=== PATIENT | female | born 1960 | race Caucasian/White ===

== ENCOUNTER 2017-07-29 11:22 | Emergency (ER) | payer OTHER ==
[~2017-07-29] VITALS: Ht 160 cm; Wt 55.3 kg
[~2017-07-29 11:22] MED LIST: HYDACE5 PO; IBUP200 PO; RANI150 PO; RISP3 PO; SERT100 PO
[2017-07-29] MEDS ORDERED: ALBU90OI61 INH (11:45)
[2017-07-29] MEDS ORDERED: Crutch1 EACH UD (13:10)
[2017-07-29] MEDS ORDERED: Norco 5-325 Ta1 EACH PO (13:10)
== END 2017-07-29 13:35 | disposition home or self-care (01) ==
LOC: ER 11:22
DX: M25.561 Pain in right knee (principal); F31.9 Bipolar disorder, unspecified; F17.200 Nicotine dependence, unspecified, uncomplicated; Z98.890 Other specified postprocedural states
CPT/HCPCS: 29505; 73564; 99283

== ENCOUNTER → 2018-07-28 | Outpatient (CLI) | payer OTHER ==
[~2018-07-28] MED LIST changes: +ALBU90OI61 INH; +Crutch1 EACH UD; +Norco 5-325 Ta1 EACH PO
[2018-08-01 14:08] LABS: HPV 16 Negative (Negative); HPV 18 Negative (Negative); HPV OTHER HR TYPES Negative (Negative)
== END | disposition home or self-care (01) ==
LOC: LAB 14:10 → LAB SHORT 14:10
PROVIDERS: Family Medicine
DX: Z00.00 Encounter for general adult medical examination without abnormal findings (principal)
CPT/HCPCS: 87624; G0145

== ENCOUNTER → 2018-12-08 | Outpatient (CLI) | payer OTHER | END | disposition home or self-care (01) | LOC: LAB 18:08 → LAB SHORT 18:08 | DX: N39.0 Urinary tract infection, site not specified (principal) | CPT/HCPCS: 87086 ==

== ENCOUNTER 2020-01-15 20:05 | Inpatient (IN) | payer OTHER ==
[~2020-01-15] VITALS: Ht 160 cm; Wt 51.6 kg
[~2020-01-15 20:05] MED LIST changes: -SERT100 PO; +ZOLOFT25 MG PO
[2020-01-15 20:39] LABS: BASOPHILS ABSOLUTE AUTO 0.01 K/mm3 (0.00-0.23); BASOPHILS PERCENT AUTO 0 % (0-2); EOSINOPHILS ABSOLUTE AUTO 0.03 K/mm3 (0.00-0.68); EOSINOPHILS PERCENT AUTO 0 % (0-6); Hematocrit 38.9 % (33.0-51.0); Hemoglobin 14.5 g/dL (11.5-16.0); IMMATURE GRAN ABSOLUTE AUTO 0.04 K/mm3 (0.00-0.10); IMMATURE GRAN PERCENT AUTO 1 % (0-1); LYMPHOCYTES ABSOLUTE AUTO 1.27 K/mm3 (0.84-5.20); LYMPHOCYTES PERCENT AUTO 16 % (21-46); MONOCYTES ABSOLUTE AUTO 0.93 K/mm3 (0.16-1.47); MONOCYTES PERCENT AUTO 12 % (4-13); Mean Corpuscular HGB 31.8 pg (26.0-34.0); Mean Corpuscular HGB Conc 37.3 g/dL (31.5-36.5); Mean Corpuscular Volume 85 fL (80-100); Mean Platelet Volume 10.1 fL (9.1-12.4); NEUTROPHILS ABSOLUTE AUTO 5.58 K/mm3 (1.96-9.15); NEUTROPHILS PERCENT AUTO 71 % (41-73); Platelet Count 157 K/mm3 (150-400); RDW Standard Deviation 34.2 fL (35.1-46.3); Red Blood Cell Count 4.56 M/mm3 (3.80-5.20); White Blood Cell Count 7.86 K/mm3 (4.00-11.30)
[2020-01-15 20:53] LABS: International Normalized Ratio 1.06; Prothrombin Time Results 11.3 Sec (9.7-11.5)
[2020-01-15 21:16] LABS: Alanine Aminotransfer (ALT/SGP 655 U/L (12-78); Albumin, Blood 3.6 g/dL (3.4-5.0); Alk Phos 102 U/L (50-136); Anion Gap 9 mmol/L (6-16); Aspartate Aminotrans (AST/SGOT 665 U/L (12-37); Bilirubin, Total 1.7 mg/dL (0.1-1.0); Blood Urea Nitrogen 15 mg/dL (8-24); Bun/Creatinine Ratio 28.7 (12.0-20.0); CO2, Blood 30 mmol/L (21-32); Calcium, Blood 8.4 mg/dL (8.5-10.1); Chloride, Blood 74 mmol/L (98-108); Creatinine, Blood 0.52 mg/dL (0.40-1.00); Globulin, Blood 3.5 g/dL (2.2-4.0); Glomerular Filtration Rate >60 (60-); Glucose, Blood 126 mg/dL (70-99); Sodium, Blood 113 mmol/L (136-145); Total Protein, Blood 7.1 g/dL (6.4-8.2)
[2020-01-15 21:49] LABS: Magnesium, Blood 2.4 mg/dL (1.6-2.4)
[2020-01-15 22:06] LABS: Osmolality, Serum 240 mos/KG (275-300)
--- NOTE | 2020-01-16 01:54 | NUR ---
ADMIT NOTE RECEIVED HANDOFF REPORT FROM ER NURSE JEWELL. PT ARRIVED TO FLOOR VIA GURNEY, ACCOMPANIED BY HER DAUGHTER. PT ORIENTED TO UNIT, CALL BUTTON WITHIN REACH. IV FLUIDS STARTED ORDERED.
[2020-01-16 02:35] LABS: BASOPHILS ABSOLUTE AUTO 0.01 K/mm3 (0.00-0.23); BASOPHILS PERCENT AUTO 0 % (0-2); EOSINOPHILS ABSOLUTE AUTO 0.07 K/mm3 (0.00-0.68); EOSINOPHILS PERCENT AUTO 1 % (0-6); Hematocrit 35.1 % (33.0-51.0); Hemoglobin 13.1 g/dL (11.5-16.0); IMMATURE GRAN ABSOLUTE AUTO 0.03 K/mm3 (0.00-0.10); IMMATURE GRAN PERCENT AUTO 1 % (0-1); LYMPHOCYTES PERCENT AUTO 23 % (21-46); MONOCYTES ABSOLUTE AUTO 0.78 K/mm3 (0.16-1.47); MONOCYTES PERCENT AUTO 12 % (4-13); Mean Corpuscular HGB 32.3 pg (26.0-34.0); Mean Corpuscular HGB Conc 37.3 g/dL (31.5-36.5); Mean Corpuscular Volume 87 fL (80-100); Mean Platelet Volume 10.4 fL (9.1-12.4); NEUTROPHILS ABSOLUTE AUTO 4.26 K/mm3 (1.96-9.15); NEUTROPHILS PERCENT AUTO 64 % (41-73); Platelet Count 129 K/mm3 (150-400); RDW Coefficient Variation 10.9 % (11.7-14.2); RDW Standard Deviation 34.6 fL (35.1-46.3); Red Blood Cell Count 4.06 M/mm3 (3.80-5.20); White Blood Cell Count 6.65 K/mm3 (4.00-11.30)
[2020-01-16 02:55] LABS: Alanine Aminotransfer (ALT/SGP 547 U/L (12-78); Albumin, Blood 3.1 g/dL (3.4-5.0); Alk Phos 85 U/L (50-136); Anion Gap 9 mmol/L (6-16); Aspartate Aminotrans (AST/SGOT 496 U/L (12-37); Bilirubin, Total 1.4 mg/dL (0.1-1.0); Blood Urea Nitrogen 14 mg/dL (8-24); Bun/Creatinine Ratio 28.4 (12.0-20.0); CO2, Blood 29 mmol/L (21-32); Calcium, Blood 8.2 mg/dL (8.5-10.1); Chloride, Blood 81 mmol/L (98-108); Creatinine, Blood 0.49 mg/dL (0.40-1.00); Globulin, Blood 3.1 g/dL (2.2-4.0); Glomerular Filtration Rate >60 (60-); Glucose, Blood 129 mg/dL (70-99); Potassium, Blood 2.9 mmol/L (3.5-5.5); Sodium, Blood 119 mmol/L (136-145); Total Protein, Blood 6.2 g/dL (6.4-8.2)
[2020-01-16 04:06] LABS: Source, Urine Clean Catch
--- NOTE | 2020-01-16 04:07 | NUR ---
SHIFT SUMMARY ADMITTED FROM ER THIS SHIFT FOR ELECTROLYTE IMBALANCE. FULL CODE. NS IS INFUSING @ 100 ML/HR. NA+ LAB WAS 113 ON ADMIT, NOW INCREASED TO 119. K+ WAS 3.0 ON ADMIT, NOW 2.9. 40 mEq POTASSIUM GIVEN PO IN ER. ELEVATED LIVER ENZYMES DOWNTRENDING. TELEMETRY REPORTS NSR @ 74 BPM WITH NO EVENTS. PT REPORTS SEVERE WEAKNESS, SHE IS INDEPENDENT AT HOME. SHE IS FORGETFUL AND STATES THAT IT'S HARD TO THINK. URINALYSIS SENT TO LAB THIS SHIFT. FREQUENT FALLS AT HOME. RT TX'S AVAILABLE PRN.
[2020-01-16 04:09] LABS: Appearance, Urine Clear (Clear); Bilirubin, Urine Neg (Neg); Blood, Urine 3+ (Neg); Color, Urine Yellow (P-Yellow); Glucose Qualitative, Urine Neg (Neg); Ketones, Urine 1+ (Neg); Leukocyte Esterase, Urine Neg (Neg); Nitrite, Urine Neg (Neg); Protein, Urine Neg (Neg); Urobilinogen, Urine NORM (Normal)
--- NOTE | 2020-01-16 04:37 | NUR ---
CALLED HOSPITALIST INFORMED HER OF PT ELECTROLYTES. PHYSICIAN ORDERED 60 mEq OF POTASSIUM ONE TIME. INFORMED CHARGE.
[2020-01-16 05:42] LABS: Bacteria Not Seen /hpf; Squamous Epithelial Cells Few /hpf (Few); White Blood Cells, Urine Not Seen /hpf (0-5)
[2020-01-16 08:49] LABS: Anion Gap 6 mmol/L (6-16); Blood Urea Nitrogen 13 mg/dL (8-24); Bun/Creatinine Ratio 24.5 (12.0-20.0); CO2, Blood 28 mmol/L (21-32); Calcium, Blood 7.9 mg/dL (8.5-10.1); Chloride, Blood 90 mmol/L (98-108); Creatinine, Blood 0.53 mg/dL (0.40-1.00); Glomerular Filtration Rate >60 (60-); Glucose, Blood 121 mg/dL (70-99); Potassium, Blood 3.7 mmol/L (3.5-5.5); Sodium, Blood 124 mmol/L (136-145)
--- NOTE | 2020-01-16 17:00 | NUR ---
PT WAS STRAIGHT CATHED DUE TO RETENTION. 1800 OUT. PT HAS RESTED AND HAD DAUGHTER IN ROOM. PT HAS COMPLAINED OF SORE THROAT , MEDICATED PER EMAR. CALL LIGHT WITHIN REACH. NO ACUTE CHANGES.
[2020-01-16 19:00] LABS: Potassium, Blood 3.7 mmol/L (3.5-5.5)
--- NOTE | 2020-01-17 04:39 | NUR ---
SHIFT SUMMARY ADMITTED FOR HYPONATREMIA. FULL CODE. PT STATES SHE FEELS MUCH IMPROVED. SHE TENDS TO RETAIN URINE FOR LONG PERIODS OF TIME AND THEN FLOODS ALL AT ONCE. PLAN IS FOR PHYSICAL & OCCUPATIONAL THERAPIES TO WORK WITH THIS PT. ALSO AWAITING MORNING LABS. SHE HAS A HX OF ELEVATED LIVER ENZYMES. SHE STATES HER SORE MOUTH AND THROAT INHIBIT EATING. NO NEW CONCERNS THIS SHIFT.
[2020-01-17 04:57] LABS: Hematocrit 35.1 % (33.0-51.0); Hemoglobin 12.1 g/dL (11.5-16.0); Mean Corpuscular HGB 31.4 pg (26.0-34.0); Mean Corpuscular HGB Conc 34.5 g/dL (31.5-36.5); Mean Corpuscular Volume 91 fL (80-100); Mean Platelet Volume 10.6 fL (9.1-12.4); Platelet Count 137 K/mm3 (150-400); RDW Coefficient Variation 11.7 % (11.7-14.2); Red Blood Cell Count 3.85 M/mm3 (3.80-5.20); White Blood Cell Count 5.32 K/mm3 (4.00-11.30)
[2020-01-17 05:20] LABS: Alanine Aminotransfer (ALT/SGP 365 U/L (12-78); Albumin/Globulin Ratio 1.1 (0.8-1.8); Alk Phos 82 U/L (50-136); Anion Gap 5 mmol/L (6-16); Aspartate Aminotrans (AST/SGOT 217 U/L (12-37); Bilirubin, Total 0.9 mg/dL (0.1-1.0); Blood Urea Nitrogen 11 mg/dL (8-24); Bun/Creatinine Ratio 17.9 (12.0-20.0); CO2, Blood 27 mmol/L (21-32); Calcium, Blood 8.2 mg/dL (8.5-10.1); Chloride, Blood 101 mmol/L (98-108); Creatinine, Blood 0.62 mg/dL (0.40-1.00); Globulin, Blood 2.8 g/dL (2.2-4.0); Glomerular Filtration Rate >60 (60-); Glucose, Blood 107 mg/dL (70-99); Potassium, Blood 3.5 mmol/L (3.5-5.5); Sodium, Blood 133 mmol/L (136-145); Total Protein, Blood 5.8 g/dL (6.4-8.2)
--- NOTE | 2020-01-17 13:17 | NUR ---
Met Pt. in bed restimng she reports doing fine , encoursged pt. offered prayers and spiritual support.
--- NOTE | 2020-01-17 17:31 | NUR ---
SHIFT SUMMARY PT IS A&O X4, WITH NO REPORTS OF N/V OR SOB. PT STATES SHE HAS PAIN THAT IS AN 8/10 IN HER MOUTH AND THROAT MAKING IT DIFFICULT TO EAT OR DRINK. MAGIC MOUTHWASH WAS REQUESTED AND THE PROVIDER PLACED THE ORDERED. PT REPORTS THAT THE PAIN IS MUCH MORE BAREABLE. MOUTHWASH IS LOCATED IN PT DRAWER OUTSIDE OF ROOM. PT SODIUM LEVELS ARE IMPROVING HOWEVER STILL SLIGHTLY LOW. POTASSIUM IS NOW WITHIN NORMAL RANGE. PT IS TO BE DISCHARGED TO [facility] TOMORROW ([facility]). PT IS ON TELE WITH NSR @ 84. 20G IV LOCATED IN LEFT FOREARM, SALINE LOCKED. PT PERFERS BEDPAN HOWEVER WE ARE TRYING TO ENCOURAGE HER TO GET UP TO THE BSC.
--- NOTE | 2020-01-18 04:37 | NUR ---
SHIFT SUMMARY- NO ACUTE EVENTS OVERNIGHT. PT. ASLEEP T/O MOST OF THE NIGHT, NO APPARENT DISTRESS NOTED. PT. C/O MOUTH PAIN 1X, MEDICATED WITH TYLENOL PER PT. REQUEST. REPORTED GOOD RELIEF. NO OTHER COMPLAINTS THIS SHIFT. PT. ANTICIPATING D/C TODAY TO [facility]. CALL LIGHT WITHIN REACH AND SIDE RAILS UPX2. WILL CONT TO MONITOR.
[2020-01-18] MEDS ORDERED: GI COCKTAIL MT (11:28)
--- NOTE | 2020-01-18 12:46 | NUR ---
REPORT CALLED TO [facility]. PT DC'D TO [facility]IA [facility]SPORT AT 1240. IV DC'D INTACT. DAUGHTER AT BEDSIDE.
== END 2020-01-18 12:41 | DRG 641 ==
LOC: ER 20:05 → MEDS 22:52
PROVIDERS: Emergency Medicine; Internal Medicine; Physician Assistant; ADMIT Internal Medicine
DX: E87.1 Hypo-osmolality and hyponatremia (principal); E87.6 Hypokalemia; F17.210 Nicotine dependence, cigarettes, uncomplicated; F31.9 Bipolar disorder, unspecified; J44.9 Chronic obstructive pulmonary disease, unspecified; R29.6 Repeated falls; W19.XXXA Unspecified fall, initial encounter; T43.225A Adverse effect of selective serotonin reuptake inhibitors, initial encounter; K12.1 Other forms of stomatitis; K12.30 Oral mucositis (ulcerative), unspecified; R74.8 Abnormal levels of other serum enzymes; R27.0 Ataxia, unspecified
CPT/HCPCS: 36415; 70450; 71045; 76705; 80048; 80051; 80053; 81001; 82570; 83735; 83880; 83930; 83935; 84100; 84300; 84443; 85025; 85027; 85610; 93005; 93010; 94760; 96360; 96361; 97110; 97112; 97116; 97162; 97166; 97530; 97535; 99285-25; A9270; J1650; J7030; U0002

== ENCOUNTER 2020-11-12 08:47 | Emergency (ER) | payer OTHER ==
[~2020-11-12] VITALS: Ht 162.6 cm; Wt 46.7 kg
[~2020-11-12 08:47] MED LIST changes: +GI COCKTAIL MT
[2020-11-12] MEDS ORDERED: CREON DR 12,001 EACH PO (09:19)
[2020-11-12 09:40] LABS: BASOPHILS ABSOLUTE AUTO 0.04 K/mm3 (0.00-0.23); BASOPHILS PERCENT AUTO 1 % (0-2); EOSINOPHILS ABSOLUTE AUTO 0.07 K/mm3 (0.00-0.68); EOSINOPHILS PERCENT AUTO 1 % (0-6); Hematocrit 47.1 % (33.0-51.0); Hemoglobin 15.6 g/dL (11.5-16.0); IMMATURE GRAN ABSOLUTE AUTO 0.01 K/mm3 (0.00-0.10); IMMATURE GRAN PERCENT AUTO 0 % (0-1); LYMPHOCYTES PERCENT AUTO 25 % (21-46); MONOCYTES ABSOLUTE AUTO 0.39 K/mm3 (0.16-1.47); MONOCYTES PERCENT AUTO 6 % (4-13); Mean Corpuscular HGB 31.2 pg (26.0-34.0); Mean Corpuscular HGB Conc 33.1 g/dL (31.5-36.5); Mean Corpuscular Volume 94 fL (80-100); Mean Platelet Volume 10.9 fL (9.1-12.4); NEUTROPHILS ABSOLUTE AUTO 4.36 K/mm3 (1.96-9.15); NEUTROPHILS PERCENT AUTO 67 % (41-73); Platelet Count 169 K/mm3 (150-400); RDW Coefficient Variation 12.5 % (11.7-14.2); RDW Standard Deviation 43.6 fL (35.1-46.3); White Blood Cell Count 6.47 K/mm3 (4.00-11.30)
[2020-11-12 09:41] LABS: Source, Urine Voided
[2020-11-12 09:54] LABS: Appearance, Urine Clear (Clear); Bilirubin, Urine Neg (Neg); Blood, Urine 1+ (Neg); Glucose Qualitative, Urine Neg (Neg); Ketones, Urine Neg (Neg); Leukocyte Esterase, Urine Neg (Neg); Nitrite, Urine Neg (Neg); Protein, Urine Neg (Neg); Specific Gravity, Urine 1.015 (1.003-1.022); Urobilinogen, Urine NORM (Normal); pH, Urine 6.5 (5.0-8.0)
[2020-11-12 09:59] LABS: Alanine Aminotransfer (ALT/SGP 30 U/L (12-78); Albumin, Blood 4.2 g/dL (3.4-5.0); Albumin/Globulin Ratio 1.1 (0.8-1.8); Alk Phos 131 U/L (50-136); Anion Gap 1 mmol/L (6-16); Aspartate Aminotrans (AST/SGOT 13 U/L (12-37); Bilirubin, Total 0.4 mg/dL (0.1-1.0); Blood Urea Nitrogen 3 mg/dL (8-24); Bun/Creatinine Ratio 5.3 (12.0-20.0); CO2, Blood 31 mmol/L (21-32); Calcium, Blood 9.1 mg/dL (8.5-10.1); Chloride, Blood 105 mmol/L (98-108); Creatinine, Blood 0.57 mg/dL (0.40-1.00); Globulin, Blood 3.7 g/dL (2.2-4.0); Glomerular Filtration Rate >60 (60-); Glucose, Blood 148 mg/dL (70-99); Sodium, Blood 137 mmol/L (136-145); Total Protein, Blood 7.9 g/dL (6.4-8.2)
[2020-11-12 10:03] LABS: Color, Urine Pale Yellow (P-Yellow)
[2020-11-12 10:04] LABS: Red Blood Cells, Urine 0-2 /hpf (0-2); Squamous Epithelial Cells Few /hpf (Few); White Blood Cells, Urine 0-2 /hpf (0-5)
[2020-11-12 10:05] LABS: Bacteria Rare /hpf
[2020-11-27] MEDS ORDERED: Neurontin 300300 MG PO (09:23)
[2020-11-27] MEDS ORDERED: Naltrexone HCl50 MG PO (09:23)
[2020-11-27] MEDS ORDERED: Nicoderm Cq1 EAC1 TOP (09:30)
== END 2020-11-12 10:46 | disposition home or self-care (01) ==
LOC: ER 08:47
PROVIDERS: Emergency Medicine
DX: R53.1 Weakness (principal); Z88.6 Allergy status to analgesic agent; Z79.899 Other long term (current) drug therapy
CPT/HCPCS: 36415; 70450; 80053; 81001; 82947; 85025; 99285-25

== ENCOUNTER 2021-05-03 08:38 | Emergency (ER) | payer OTHER ==
[~2021-05-03] VITALS: Ht 160 cm; Wt 53.1 kg
[~2021-05-03 08:38] MED LIST changes: +CREON DR 12,001 EACH PO; +Naltrexone HCl50 MG PO; +Neurontin 300300 MG PO; +Nicoderm Cq1 EAC1 TOP
[2021-05-03 09:22] LABS: Source, Urine Clean Catch
[2021-05-03 09:28] LABS: BASOPHILS ABSOLUTE AUTO 0.03 K/mm3 (0.00-0.23); BASOPHILS PERCENT AUTO 0 % (0-2); EOSINOPHILS ABSOLUTE AUTO 0.06 K/mm3 (0.00-0.68); EOSINOPHILS PERCENT AUTO 1 % (0-6); Hematocrit 43.3 % (33.0-51.0); Hemoglobin 14.8 g/dL (11.5-16.0); IMMATURE GRAN ABSOLUTE AUTO 0.02 K/mm3 (0.00-0.10); IMMATURE GRAN PERCENT AUTO 0 % (0-1); LYMPHOCYTES ABSOLUTE AUTO 1.26 K/mm3 (0.84-5.20); LYMPHOCYTES PERCENT AUTO 15 % (21-46); MONOCYTES ABSOLUTE AUTO 0.44 K/mm3 (0.16-1.47); MONOCYTES PERCENT AUTO 5 % (4-13); Mean Corpuscular HGB 31.6 pg (26.0-34.0); Mean Corpuscular HGB Conc 34.2 g/dL (31.5-36.5); Mean Corpuscular Volume 93 fL (80-100); Mean Platelet Volume 10.3 fL (9.1-12.4); NEUTROPHILS ABSOLUTE AUTO 6.74 K/mm3 (1.96-9.15); NEUTROPHILS PERCENT AUTO 79 % (41-73); Platelet Count 226 K/mm3 (150-400); RDW Coefficient Variation 12.4 % (11.7-14.2); RDW Standard Deviation 42.2 fL (35.1-46.3); Red Blood Cell Count 4.68 M/mm3 (3.80-5.20); White Blood Cell Count 8.55 K/mm3 (4.00-11.30)
[2021-05-03 09:45] LABS: Appearance, Urine Clear (Clear); Bilirubin, Urine Neg (Neg); Blood, Urine Neg (Neg); Color, Urine Yellow (P-Yellow); Glucose Qualitative, Urine Neg (Neg); Ketones, Urine Neg (Neg); Leukocyte Esterase, Urine Neg (Neg); Nitrite, Urine Neg (Neg); Protein, Urine Neg (Neg); Urobilinogen, Urine NORM (Normal); pH, Urine 6.5 (5.0-8.0)
[2021-05-03 09:58] LABS: Alanine Aminotransfer (ALT/SGP 26 U/L (12-78); Albumin, Blood 3.5 g/dL (3.4-5.0); Albumin/Globulin Ratio 0.9 (0.8-1.8); Alk Phos 115 U/L (50-136); Anion Gap 6 mmol/L (6-16); Aspartate Aminotrans (AST/SGOT 15 U/L (12-37); Bilirubin, Total 0.4 mg/dL (0.1-1.0); Blood Urea Nitrogen 5 mg/dL (8-24); Bun/Creatinine Ratio 9.5 (12.0-20.0); CO2, Blood 26 mmol/L (21-32); Calcium, Blood 9.3 mg/dL (8.5-10.1); Chloride, Blood 105 mmol/L (98-108); Creatinine, Blood 0.53 mg/dL (0.40-1.00); Globulin, Blood 3.8 g/dL (2.2-4.0); Glomerular Filtration Rate >60 (60-); Glucose, Blood 172 mg/dL (70-99); Potassium, Blood 3.9 mmol/L (3.5-5.5); Sodium, Blood 137 mmol/L (136-145); Total Protein, Blood 7.3 g/dL (6.4-8.2); Troponin I <0.015 ng/mL (0.000-0.040)
[2021-05-03] MEDS ORDERED: Ativan0.5 MG PO (10:33)
== END 2021-05-03 10:55 | disposition home or self-care (01) ==
LOC: ER 08:38
PROVIDERS: Physician Assistant
DX: F41.9 Anxiety disorder, unspecified (principal); F17.210 Nicotine dependence, cigarettes, uncomplicated; Z88.8 Allergy status to other drugs, medicaments and biological substances; Z79.899 Other long term (current) drug therapy
CPT/HCPCS: 36415; 71046; 80053; 81003; 83690; 84484; 85025; 93005; 93010; 99284-25; A9270

== ENCOUNTER → 2022-01-27 | Outpatient (CLI) | payer OTHER ==
[~2022-01-27] MED LIST changes: +Ativan0.5 MG PO
== END ==
LOC: LAB SHORT 10:55 → LAB 10:55
PROVIDERS: Nurse Practitioner Family
DX: Z12.4 Encounter for screening for malignant neoplasm of cervix (principal)

== ENCOUNTER → 2024-01-05 | Outpatient (CLI) | payer MEDICARE, OTHER ==
[2024-01-05 12:49] LABS: Stool Occult Bld Immuno 1 Negative (NEGATIVE)
== END ==
LOC: LAB SHORT 06:30 → LAB 06:30
PROVIDERS: Family Medicine
DX: R63.4 Abnormal weight loss (principal)
CPT/HCPCS: G0328

== ENCOUNTER → 2024-11-08 | Outpatient (CLI) | payer MEDICARE, OTHER | LOC: LAB EV 07:50 | DX: L82.0 Inflamed seborrheic keratosis (principal) | CPT/HCPCS: 88305 ==